=== PATIENT | female | born 1985 | race Caucasian/White ===

== ENCOUNTER 2020-09-08 09:49 | Inpatient (IN) ==
[2020-09-08] MEDS ORDERED: Metoclopramide 10 MG/2 ML VIAL IVP PRN (10:04)
[2020-09-08] MEDS ORDERED: *HR* Nalbuphine 10 MG/ML AMPUL IV PRN (10:04)
[2020-09-08] MEDS ORDERED: Famotidine 20 MG/2 ML VIAL IVP PRN (10:04)
[2020-09-08] MEDS ORDERED: Ondansetron 4 MG/2 ML VIAL IVP PRN (10:04)
[2020-09-08] MEDS ORDERED: Naloxone 0.4 MG/ML INJ IVP PRN (10:04)
[2020-09-08] MEDS ORDERED: Lidocaine 1% 20 ML MDV INFILT PRN (10:04)
[2020-09-08] MEDS ORDERED: Oxytocin 20 units/ LR 1000 mL 20 UNIT/1,000 ML BAG IVC SCH ×2 (10:30→18:13)
[2020-09-08 10:44] LABS: Basophils % 0.3 %; Eosinophils # 0.1 K/mcL (0.0-0.6); Eosinophils % 0.5 %; Hematocrit 36.8 % (35.3-44.9); Hemoglobin 11.8 g/dL (11.5-15.4); Immature Granulocytes % 0.7 % (0-4); Lymphocytes # 1.4 K/mcL (0.6-4.6); Mean Corpuscular HGB Conc 32.1 g/dL (31.6-35.5); Mean Corpuscular Hemoglobin 27.6 pg (28.0-33.3); Mean Corpuscular Volume 86.2 fL (83.0-100.0); Mean Platelet Volume 11.4 fL (9.4-12.4); Monocytes # 0.5 K/mcL (0.0-1.3); Monocytes % 5.3 %; Neutrophils # 7.5 K/mcL (1.6-8.9); Platelet Count 303 K/mcL (140-400); Red Blood Count 4.27 M/mcL (3.82-4.97); Red Cell Distribution Width 12.9 % (11.5-14.5); Segmented Neutrophils % 78.2 %; White Blood Count 9.6 K/mcL (4.3-11.1)
[2020-09-08] MEDS: Ringers Solution, Lactated 1,000 ML IVC SCH ×3 (10:59→17:24)
[2020-09-08 11:51] LABS: Amphetamine Screen,Urine Negative ng/mL (Cutoff=1000); Barbiturate Screen,Urine Negative ng/mL (Cutoff=200); Benzodiazepines Screen,Urine Negative ng/mL (Cutoff=200); Cannabinoid Screen,Urine Negative ng/mL (Cutoff = 50); Cocaine Screen,Urine Negative ng/mL (Cutoff= 300); Opiate Screen,Urine Negative ng/mL (Cutoff=300); Phencyclidine Screen,Urine Negative ng/mL (Cutoff=25)
[2020-09-08 12:34] LABS: Influenza A PCR Negative (Negative); Influenza B PCR Negative (Negative); Resp. Syncytial Virus PCR Negative (Negative)
[2020-09-08 12:38] LABS: SARS-CoV-2 by PCR (In House) Negative (Negative)
[2020-09-08] MEDS ORDERED: Bupivacaine-MPF 0.25% 10 ML VIAL EP ONE (12:47)
[2020-09-08] MEDS ORDERED: EPHEDrine 50 MG/ML VIAL IVP PRN (12:47)
[2020-09-08] MEDS ORDERED: *HR* FentaNYL (PF) 100 MCG/2 ML VIAL EP ONE (12:47)
[2020-09-08] MEDS ORDERED: Epidural Premix (fent/bupiv) 110 ML EP SCH (13:00)
[2020-09-08] MEDS ORDERED: Famotidine 20 MG/2 ML VIAL IVP ONE (17:19)
[2020-09-08] MEDS ORDERED: Acetaminophen 325 MG TABLET PO PRN (18:13)
[2020-09-08] MEDS ORDERED: Lanolin 7 G OINT...G. TP PRN (18:13)
[2020-09-08] MEDS ORDERED: Measles/Mumps/Rubella Vacc 0.5 ML VIAL SQ PRN (18:13)
[2020-09-08] MEDS ORDERED: Benzocaine/Menthol 56 GM AEROSOL SPRAY TP PRN (18:13)
[2020-09-08] MEDS: Ibuprofen 600 MG TABLET PO PRN (19:36)
[2020-09-09 05:39] LABS: Basophils % 0.3 %; Eosinophils # 0.1 K/mcL (0.0-0.6); Hematocrit 31.5 % (35.3-44.9); Immature Granulocytes % 0.6 % (0-4); Lymphocytes # 1.6 K/mcL (0.6-4.6); Lymphocytes % 12.5 %; Mean Corpuscular HGB Conc 32.1 g/dL (31.6-35.5); Mean Corpuscular Hemoglobin 28.1 pg (28.0-33.3); Mean Corpuscular Volume 87.7 fL (83.0-100.0); Monocytes # 0.7 K/mcL (0.0-1.3); Monocytes % 5.8 %; Neutrophils # 9.9 K/mcL (1.6-8.9); Platelet Count 232 K/mcL (140-400); Red Blood Count 3.59 M/mcL (3.82-4.97); Red Cell Distribution Width 13.1 % (11.5-14.5); Segmented Neutrophils % 79.8 %; White Blood Count 12.5 K/mcL (4.3-11.1)
[2020-09-09 05:40] LABS: Hemoglobin 10.1 g/dL (11.5-15.4)
[2020-09-09] MEDS: Ibuprofen 600 MG TABLET PO PRN (07:47)
[2020-09-09 08:00] VITALS: BP 134/89
[2020-09-09] MEDS ORDERED: Prenatal Vit/FA 1 EACH TABLET PO SCH (09:00)
[2020-09-09] MEDS ORDERED: NON-FORMULARY MEDICATION 1 EACH EACH (Pnv No.95/Ferrous Fum/Folic Ac [Prenatal Caplet] 1 E PO SCH (09:00)
== END 2020-09-09 18:17 | disposition home or self-care (01) | DRG 807 ==
LOC: 1NENULAB 09:49 → 1NENUOBS 20:14
PROVIDERS: ADMIT Obstetrics & Gynecology; ATTEND Obstetrics & Gynecology